=== PATIENT | male | born 1945 | race Caucasian/White ===

== ENCOUNTER 2022-04-12 05:45 | Emergency (ER) | payer MEDICARE, BC ==
[2022-04-12 06:52] LABS: ANION GAP 14.2 mmol/L (5-15)
== END 2022-04-12 07:40 | disposition home or self-care (01) ==
LOC: KA.ED 05:45
DX: R00.1 Bradycardia, unspecified (principal); R53.1 Weakness; R42 Dizziness and giddiness; I25.810 Atherosclerosis of coronary artery bypass graft(s) without angina pectoris; I10 Essential (primary) hypertension; Z91.030 Bee allergy status; Z79.899 Other long term (current) drug therapy; Z79.02 Long term (current) use of antithrombotics/antiplatelets
CPT/HCPCS: 36415; 80053; 84484; 85025; 93010; 99284; 99285

== ENCOUNTER 2022-05-31 17:06 | Emergency (ER) | payer OTHER, MEDICARE, BC ==
[2022-05-31] MEDS: Lidocaine 2% 5 ML SDV INJECT ONE (17:30)
== END 2022-05-31 18:32 | disposition home or self-care (01) ==
LOC: KA.ED 17:06
DX: S61.411A Laceration without foreign body of right hand, initial encounter (principal); I10 Essential (primary) hypertension; K21.9 Gastro-esophageal reflux disease without esophagitis; I25.10 Atherosclerotic heart disease of native coronary artery without angina pectoris; Z95.5 Presence of coronary angioplasty implant and graft; Z91.030 Bee allergy status; Z79.899 Other long term (current) drug therapy; W26.8XXA Contact with other sharp object(s), not elsewhere classified, initial encounter
CPT/HCPCS: 12001; 12002; 99282; 99283; J3490